=== PATIENT | male | born 1945 | race Caucasian/White ===

== ENCOUNTER 2022-09-29 16:47 | Emergency (ER) | payer OTHER, BC ==
[2022-09-29 16:54] VITALS: BMI 26.6
[2022-09-29] MEDS ORDERED: ACETAMINOPHEN 500 MG TABLET (FP) PO ONE (17:20)
[2022-09-29] MEDS ORDERED: ACETAMINOPHEN 325 MG TABLET (FP) ONE (17:21)
[2022-09-29 17:26] LABS: HEMATOCRIT 35.1 % (35.4-49); HEMOGLOBIN 12.5 G/dL (11.7-16.9); MCHC 35.6 g/dl (32.0-35.9); MEAN CELL VOLUME 95.4 fl (80-96); PLATELET COUNT 222.3 10^3/uL (134-434); RBC 3.68 10^6/uL (4.00-5.60); RDW 12.8 % (11.9-15.9); WHITE BLOOD COUNT 7.5 10^3/uL (4.0-10.8)
[2022-09-29 17:33] LABS: INR 1.08 (0.83-1.09); PROTHROMBIN TIME (PATIENT) 12.5 SEC (9.7-13.0)
[2022-09-29 17:36] LABS: ACTIVATED PTT 31.4 SECONDS (25.2-36.5)
[2022-09-29 17:44] LABS: ALBUMIN 4.1 g/dl (3.4-5.0); BILIRUBIN,TOTAL 0.5 mg/dl (0.2-1); BLOOD UREA NITROGEN 15.2 mg/dl (7-18); CALCIUM 9.2 mg/dl (8.5-10.1); PLATELET ESTIMATE ADEQUATE; POTASSIUM 3.7 mmol/L (3.5-5.1); SGOT/AST 12.1 U/L (15-37); SGPT/ALT 10.8 U/L (7-52); TOT PROT 6.5 g/dl (6.4-8.2)
[2022-09-29] MEDS ORDERED: ATORVASTATIN CA 10 MG TABLET (FP) PO SCH (20:15)
[2022-09-29 20:23] LABS: N-TERMINAL BNP 344.7 pg/ml (5-450)
[2022-09-29] MEDS ORDERED: ATORVASTATIN CA 80 MG TABLET (FP) PO ONE (21:01)
[2022-09-29] MEDS ORDERED: HEPARIN NA (PORCINE) 5,000 UNITS/ML 1ML VIAL IVPUSH PRN ×2 (21:01)
[2022-09-29] MEDS ORDERED: CLOPIDOGREL BISULFATE 300 MG TABLET PO ONE (21:03)
[2022-09-29] MEDS ORDERED: HEPARIN INFUSION - 25,000 UNITS/500 ML INFUS.BAG IVPB ONE (21:08)
[2022-09-29 21:14] VITALS: RESP 16
[2022-09-29] MEDS ORDERED: HEPARIN - 25,000 UNIT in SODIUM CHLORIDE 495 ML IV SCH (21:15)
[2022-09-29] MEDS ORDERED: ENOXAPARIN NA (PORCINE) 30 MG/0.3 ML DISP.SYRIN SQ SCH (22:00)
[2022-09-29] MEDS ORDERED: TAMSULOSIN HCL 0.4 MG CAP PO SCH (22:00)
[2022-09-29] MEDS ORDERED: TAMSULOSIN HCL 0.4 MG CAP ONE (23:14)
[2022-09-29 23:22] VITALS: BP 155/82; PULSE 55; TEMP 98.5
[2022-09-30] MEDS ORDERED: ASPIRIN 81 MG CHEWABLE TABLETS PO SCH (10:00)
[2022-09-30] MEDS ORDERED: ATENOLOL 50 MG TABLET (FP) PO SCH (10:00)
== END 2022-09-30 01:15 | disposition short-term general hospital (02) ==
LOC: FER 16:47 → FM/S 19:40 → UNDOADMOB 19:40 → FER 09-30 01:15
PROC: 3E033GC Introduction of Other Therapeutic Substance into Peripheral Vein, Percutaneous Approach (ICD-10-PCS; principal; 2022-09-29)
DX: R07.89 Other chest pain (principal); R61 Generalized hyperhidrosis; R42 Dizziness and giddiness; R53.1 Weakness; I21.4 Non-ST elevation (NSTEMI) myocardial infarction; R53.83 Other fatigue
CPT/HCPCS: 36415; 71045-TC-FY; 80053; 82550; 83735; 83880; 84484; 85027; 85610; 85730; 93005; 99285-25; J1644

== ENCOUNTER 2023-08-03 19:59 | Emergency (ER) | payer OTHER, BC ==
[2023-08-03 20:13] VITALS: BP 158/84; PULSE 66; RESP 18; TEMP 98.7; BMI 27.1
[2023-08-03] MEDS ORDERED: CIPROFLOXACIN 250 MG TABLET (RESTRICTED TO ID) PO ONE (21:09)
[2023-08-03] MEDS: CIPROFLOXACIN 250 MG TABLET (RESTRICTED TO ID) PO ONE (21:10)
== END 2023-08-03 21:17 | disposition home or self-care (01) ==
LOC: FER 19:59
DX: N39.0 Urinary tract infection, site not specified (principal); R30.0 Dysuria; R35.0 Frequency of micturition
CPT/HCPCS: 81003; 81015; 87086; 87186; 99283-25